=== PATIENT | female | born 1990 | race Caucasian/White ===

== ENCOUNTER → 2024-04-13 16:05 | Outpatient (CLI) | payer OTHER, SELFPAY ==
[2024-04-13 17:22] LABS: Add Manual Diff / Slide Review NO; Basophils Absolute Auto 0 /uL (0-100); Basophils Percent Auto 0.3 % (0-2); Eosinophils Absolute Auto 200 /uL (0-450); Eosinophils Percent Auto 1.6 % (2-4); Hematocrit 37.5 % (36-46); Hemoglobin 12.6 g/dL (12.0-16.0); Lymphocytes Absolute Auto 1500 /uL (1100-4500); Lymphocytes Percent Auto 15.2 % (25-40); Mean Corpuscular HGB Conc 33.6 % (30-36); Mean Corpuscular Hemoglobin 29.3 PG (26-34); Mean Corpuscular Volume 87.1 fL (80-100); Monocytes Absolute Auto 600 /uL (0-900); Monocytes Percent Auto 6.2 % (3-14); Neutrophils Absolute Auto 7400 /uL (1500-7000); Neutrophils Percent Auto 76.7 % (50-75); Platelet Count 238 X10^3/uL (150-400); Red Blood Cell Count 4.31 X10^6/uL (4.0-5.2); Red Cell Distribution Width 15.2 % (11.6-14.8); White Blood Cell Count 9.6 X10^3/uL (4.5-11.0)
[2024-04-13 17:28] LABS: Natera Collection Specimen Collected
[2024-04-13 20:06] LABS: Urine Chlamydia NOT DETECTED; Urine N gonorrhoeae NOT DETECTED
[2024-04-15 09:39] LABS: Varicella IgG Antibody Reactive (Non Reactive)
[2024-04-16 16:10] LABS: Hepatitis B Surface Antigen NEGATIVE s/c (NEGATIVE); Rubella Antibody IgG 54.7 IU/mL (>15)
[2024-04-16 16:27] LABS: Hep C Virus Ab w/Reflex Quant NEGATIVE s/c (NEGATIVE)
[2024-04-16 16:39] LABS: HIV 1 & 2 Ab/Ag 4th Gen Combo NEGATIVE (NEGATIVE)
[2024-04-17 08:08] LABS: RPR Screen Non Reactive (Non Reactive)
== END ==
LOC: LAB 16:07
PROVIDERS: Referring Provider Student in an Organized Health Care Education/Training Program; Visit Provider Student in an Organized Health Care Education/Training Program
DX: O09.521 Supervision of elderly multigravida, first trimester (principal); Z36.0 Encounter for antenatal screening for chromosomal anomalies; Z11.3 Encounter for screening for infections with a predominantly sexual mode of transmission
CPT/HCPCS: 36415; 80055; 86787; 86803; 86850; 86900; 86901; 87086; 87389; 87491; 87591

== ENCOUNTER → 2024-06-29 08:29 | Outpatient (CLI) | payer OTHER, SELFPAY ==
--- NOTE | 2024-06-29 08:33 | DI.US.S_ITS ---
PROCEDURE: US OB >= 14 WEEKS FETUS INDICATIONS: 20 week anatomy scan OUTSIDE/PRIOR DATING DATA: Working SUKHDEEP: 11/02/2024 TECHNIQUE: Real-time scanning was performed of the fetus, with image documentation and biometric measurements. Endovaginal scanning: Not performed COMPARISON: None. FINDINGS: General: A single living intrauterine gestation is present. Presentation: Variable. Placenta: Placental position is posterior , without previa. Amniotic fluid index: 13.6 cm, normal range is 5-24 cm. Single deepest vertical pocket is 4.7 cm. heart rate: 139 beats per minute. Maternal cervical canal: 5.8 cm long. Normal lower limit is 2.5 cm. biometrics: Biparietal diameter: 4.9 cm, 20 weeks 5 days Head circumference: 18.4 cm, 20 weeks 6 days Abdominal circumference: 16.6 cm, 21 weeks 4 days Femur length: 3.6 cm, 21 weeks 4 days Clinically estimated gestational age: 22 weeks 0 days Composite gestational age from present scan: 21 weeks 1 day Estimated weight and percentile: 427 g, 20th percentile Anatomic survey: Neuro: Ventricles are non-dilated at less than 10 mm. Cisterna magna is normal at 3-11 mm. Cerebellum is normal in size and morphology. Nuchal skin fold: Not evaluated due to gestational age. Face: Nose and lips, facial profile are normal. Spine: No evidence for spina bifida. Heart: 4-chambered heart is present, with normal ventricular outflow tracts. Diaphragm: Diaphragm is intact. Stomach: Left-sided stomach is present. Kidneys: No hydronephrosis. Normal is less than 5 mm in 2nd trimester, less than 7 mm in 3rd trimester. Cord: 3-vessel cord has orthotopic insertion. Bladder: Normal in size. Extremities: All 4 extremities identified. IMPRESSION: Single living intrauterine at 22 weeks 0 days, SUKHDEEP of 11/02/2024. Estimated weight of 427 g, 20th percentile. Head circumference is at the 4th percentile and BPD is at the 8th percentile. Normal anatomy survey. We strive to produce accurate, complete, and clear reports of imaging services. To assist us in improving patient care, this report was composed using standard report templates and voice recognition software. Therefore, it may contain abnormal punctuation, insertions and/or omissions. Occasional wrong-word or sound-alike substitutions may occur. Though we review the report and make efforts to correct it, we do recommend that the report be read carefully in proper context to recognize any text inaccuracies. Dictated by: Beau Ford M.D. on 06/29/2024 at 13:23 Approved by: Beau Ford M.D. on 06/29/2024 at 13:25
== END ==
PROVIDERS: Referring Provider Student in an Organized Health Care Education/Training Program; Visit Provider Student in an Organized Health Care Education/Training Program
DX: Z34.82 Encounter for supervision of other normal pregnancy, second trimester (principal); Z3A.22 22 weeks gestation of pregnancy
CPT/HCPCS: 76811

== ENCOUNTER 2024-07-27 10:08 | Outpatient (CLI) | payer OTHER, SELFPAY ==
[2024-07-27] MEDS: LACTATED RINGERS 1,000 ML 1000 ML IV (10:45)
[2024-07-27] MEDS: ONDANSETRON 4 MG/2 ML INJ IV (10:46)
[2024-07-27 11:26] LABS: Hematocrit 35.1 % (36-46); Hemoglobin 12.1 g/dL (12.0-16.0); Mean Corpuscular HGB Conc 34.5 % (30-36); Mean Corpuscular Hemoglobin 31.1 PG (26-34); Mean Corpuscular Volume 90.4 fL (80-100); Platelet Count 227 X10^3/uL (150-400); Red Blood Cell Count 3.88 X10^6/uL (4.0-5.2); Red Cell Distribution Width 12.8 % (11.6-14.8); White Blood Cell Count 10.9 X10^3/uL (4.5-11.0)
[2024-07-27 11:27] LABS: Add Manual Diff / Slide Review YES
[2024-07-27 11:54] LABS: Neutrophils Absolute Manual 10028 /uL (3000-5900); RBC Morphology Normal Morphology; Total Cells Counted 100
--- NOTE | 2024-07-27 11:58 | PM.OBTRLD ---
Visit Information Visit Information Date of evaluation: 07/27/24 Primary OB Provider: Nanette Fitzgerald Comments/Additional reasons for admission: nausea and vomiting x24hrs, unable to keep food/fluids down; denies abdominal pain or obstetrical complaints today [facility] Medical History (Updated 07/27/24 @ 11:58 by Nanette Fitzgerald, DO) Wears glasses Surgical History (Updated 05/04/24 @ 20:35 by America Chance) Anesthesia [place] teeth removed (~2017) H/O gastric sleeve (~2019) Previous section (~05/2012) Family History (Updated 05/04/24 @ 20:38 by America Chance) Brother Family estrangement Mother Hypertension Cervical cancer Father Liver cancer Gastric bypass status for obesity Grandmother Alzheimer's dementia Grandfather Diabetes mellitus Grandmother Colon cancer Hypertension Uncle Bojorquez's disease Family/Other Diabetes mellitus Social History marital status: number of children: 2 household members: spouse, family (MIL and NINA) and children lives independently: Yes caregiver/support person: Yes housing: house pets and animals: Yes (dogs) education level: college (bachelor's degree) 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) current occupational exposures/hazards: Yes special angely needs: No travel history: over 6 months ago seatbelt use: always water heater temp set < 120 deg: Yes working smoke detector in home: Yes fire extinguisher in home: No carbon monox detector in home: Yes firearms in home: Yes firearms unloaded and locked: Yes do you feel safe at home: Yes Smoking Status: Former smoker (smoked since 16, changed to vape since 2019, quits when ) Tobacco: How many years used: 18 second hand exposure: No alcohol intake: former substance use type: does not use during the past year weight has: remained stable well-balanced diet: rarely or never daily servings fruits/ve-1 (1-2) caffeine: Yes (black tea) Type(s) of exercise: none Objective Labs 07/27/24 10:45 Labs: Laboratory Results - last 24 hr 07/27/24 10:45 WBC 10.9 RBC 3.88 L Hgb 12.1 Hct 35.1 L MCV 90.4 MCH 31.1 MCHC 34.5 RDW 12.8 Plt Count 227 Neut % (Auto) Not Reportable Lymph % (Auto) Not Reportable [place] % (Auto) Not Reportable Eos % (Auto) Not Reportable Baso % (Auto) Not Reportable Lymph # (Auto) Not Reportable [place] # (Auto) Not Reportable Baso # (Auto) Not Reportable Total Counted 100 Seg Neutrophils % 92.0 H Lymphocytes % (Manual) 7.0 L Metamyelocytes % 1.0 H Neutrophils # (Manual) 59592 H RBC Morphology Normal morphology Evaluation Evaluation Baseline heart rate: 140 Variability: Moderate (11-25) monitor accelerations: Absent Monitor Decelerations: Absent Category of Tracing: Appropriate for gestational age Diagnosis, Plan/Disposition Final Diagnosis (1) Acute gastroenteritis: Status: Acute Plan/Disposition Plan: 33-year-old female presenting today for intractable nausea and vomiting over the last 24 hours. In triage, she was provided with IV hydration as well as IV antiemetics with improvement in her symptoms. status reassuring with a NST that was appropriate for gestational age. -prescription sent in for oral Zofran to use at home -advised to follow up in clinic as scheduled OB Disposition: home
== END 2024-07-27 12:05 | disposition home or self-care (01) ==
LOC: LABOR 11:56 → OB 15:20
PROVIDERS: Referring Provider Student in an Organized Health Care Education/Training Program; Visit Provider Student in an Organized Health Care Education/Training Program
DX: O26.892 Other specified pregnancy related conditions, second trimester (principal); Z3A.26 26 weeks gestation of pregnancy; K52.9 Noninfective gastroenteritis and colitis, unspecified
CPT/HCPCS: 59025; 59050; 85007; 85025; 96360; G0378; G0379; J2405

== ENCOUNTER → 2024-08-10 07:23 | Outpatient (CLI) | payer OTHER, SELFPAY ==
[2024-08-10 09:18] LABS: GTT (PREG) 1 Hour PP 50gm Dose 135 mg/dL (76-139)
[2024-08-10 09:25] LABS: Hematocrit 32.6 % (36-46); Hemoglobin 11.1 g/dL (12.0-16.0)
== END ==
PROVIDERS: Referring Provider Student in an Organized Health Care Education/Training Program; Visit Provider Student in an Organized Health Care Education/Training Program
DX: Z13.1 Encounter for screening for diabetes mellitus (principal); Z3A.27 27 weeks gestation of pregnancy
CPT/HCPCS: 36415; 82950; 85014; 85018

== ENCOUNTER → 2024-10-09 10:40 | Outpatient (CLI) | payer OTHER, SELFPAY ==
[2024-10-10 14:26] LABS: Strep Grp B PCR NEG for Grp B Strep
== END ==
LOC: LAB 10:41
PROVIDERS: Visit Provider Student in an Organized Health Care Education/Training Program
DX: Z36.85 Encounter for antenatal screening for Streptococcus B (principal)
CPT/HCPCS: 87653

== ENCOUNTER 2024-10-21 19:18 | Outpatient (CLI) | payer OTHER, SELFPAY ==
[2024-10-21 20:52] LABS: Appearance Urine UA CLEAR; Bilirubin Urine UA NEGATIVE (NEGATIVE); Glucose Urine UA NEGATIVE (Negative); Ketones Urine UA NEGATIVE (NEGATIVE); Leukocyte Esterase Urine UA NEGATIVE (NEGATIVE); Nitrite Urine UA NEGATIVE (Negative); Occult Blood Urine UA NEGATIVE (Negative); Protein Urine UA NEGATIVE (Negative); Specific Gravity Urine UA <=1.005 (1.000-1.035); Urobilinogen Urine UA 0.2 E.U./dL (0.2)
[2024-10-21 20:54] LABS: Color Urine UA Yellow
[2024-10-21 20:58] LABS: Bacteria Urine Occasional (0-1); Culture Indicated Urine Cult Not Indicated; RBC Urine 0-1/HPF (0-5/HPF); Squamous Epithelial Cell Urine 0-1 /HPF (0-5/HPF); Urine Volume 10mL (spun); WBC Urine 0-1/HPF (0-5/HPF)
== END 2024-10-21 21:15 | disposition home or self-care (01) ==
LOC: OB 10-23 14:57
PROVIDERS: Referring Provider Student in an Organized Health Care Education/Training Program; Visit Provider Student in an Organized Health Care Education/Training Program
DX: O47.1 False labor at or after 37 completed weeks of gestation (principal); Z3A.38 38 weeks gestation of pregnancy
CPT/HCPCS: 59025; 81001; G0378; G0379

== ENCOUNTER 2024-11-01 05:26 | Inpatient (IN) | payer OTHER, SELFPAY ==
--- NOTE | 2024-11-01 | PATH_ITS ---
[facility] Accession Number: [id number] No. of containers..02 Tissue . 01 Material submitted: . PART A: fallopian tube - BILATERAL FALLOPIAN TUBES PART B: body - RIGHT LATERAL ABDOMINAL WALL . 01 Clinical history: . B: SKIN TAG 7-[address] CHAPA, SITE B IS RIGHT LATERAL ABDOMINAL WALL /RR . 01 Diagnosis: A. BILATERAL FALLOPIAN TUBES, BILATERAL SALPINGECTOMY: Benign fallopian tubes and paratubal cysts, please see microscopic description. . B. RIGHT LATERAL ABDOMINAL WALL, BIOPSY: Benign nevus lipomatosus superficialis. Negative for atypia or malignancy. [facility] 11/07/2024 1113 Local . 01 Electronically signed: . Guilherme Travis MD, Pathologist NPI- [id number] . 01 Gross description: . A. Received in formalin with two identifiers and bilateral fallopian tubes, are two unoriented, fimbriated fallopian tubes, 9.5 x 0.9 cm and 8.9 x 0.6 cm. Both tubes have violaceous, smooth serosa with cystic structures up to 0.4 cm in greatest dimension. The longer fallopian tube has a flores, rubbery serosal nodule near the fimbriated end measuring 0.9 x 0.9 x 0.8 cm, and the nodule is inked blue. Sectioning reveals the nodule to be a cystic structure with slightly thickened zelaya, up to 0.2 cm thick, containing orange-flores, viscous fluid. The lumen are stellate and unremarkable. Angledozer Operator sections are submitted as follows: A1: Longer tube cystic structure. A2: Longer tube one-half of bisected fimbriae and cross-sections. A3: [place] tube one half of bisected fimbriae and cross-sections. B. Received in formalin with two identifiers and skin tag, is a flores nodule of skin, 1.3 x 0.9 x 0.3 cm. The margin is inked blue and sectioning reveals a flores, soft cut surface. Submitted entirely in B1. ([id number]) /MRV 11/02/2024 1333 Local . 01 Microscopic: . A. Microscopic examination reveals a fibrotic nodule with focal dystrophic calcifications and a ruptured appearing wall with histiocytic reaction possibly representing ruptured cyst-with associated acellular material favor possible instrumentation. There is no evidence of malignancy. . As part of ongoing lead quality control technician, slide A1 has also been reviewed by Dr. Merlyn Rojas who agrees with the interpretation. . 01 Pathologist provided ICD-10: O34.211 . 01 CPT . 226987, 359260 Specimen Comment: A courtesy copy of this report has been sent to [facility] Performed at: [address] [address], [place], [place] [id number] MD Yan Wang MD Phone: [phone]
[2024-11-01 06:20] LABS: Add Manual Diff / Slide Review NO; Hematocrit 32.0 % (36-46); Hemoglobin 10.6 g/dL (12.0-16.0); Lymphocytes Absolute Auto 2100 /uL (1100-4500); Mean Corpuscular HGB Conc 33.1 % (30-36); Mean Corpuscular Hemoglobin 28.5 PG (26-34); Mean Corpuscular Volume 85.9 fL (80-100); Platelet Count 211 X10^3/uL (150-400)
--- NOTE | 2024-11-01 07:31 | PM.OBHP.IH.1 ---
OB HPI Date/Time Date of admission: 11/01/24 Date Patient Seen: 11/01/24 Time Patient Seen: 07:32 History of Present Condition Chief complaint: INPT C SECTION SUKHDEEP Calculator Estimated Delivery Date Method Current WG Current Estimate 11/02/24 LMP (Certain) 39w 6d Other Estimates 11/04/24 Ultrasound #1 39w 4d : 3 Para: 2 Narrative: 34yo at 39+6wks presents for repeat with bilateral salpingectomy. No new complaints or concerns today. care: good care Dating criteria OB: LMP confirmed by 1st trimester US Ultrasounds: normal mid trimester US Narrative: Ultrasound Ultrasound Details:: Dating US 04/13/24: [place] IUP with CRL 3.78cm (10+5wks), +FCA 169bpm, normal uterus, cervix, bilateral ovaries Anatomy US 06/29/24: normal anatomy, posterior placenta, EFW 20% however HC/BPD 4%/8% Expected Delivery Route/Plan Repeat C/S w/ tubal Specific Issues/Plans [ x] cfDNA- low risk XY; [x ] CF/SMA- neg x2 Planned repeat C/S (x2, 1st was ), wants tubal at same time (also desires skin tag removal)--> [ x] sterilization consent (signed 09/10); [x ] schedule repeat c/s (11/01) AMA Hx gastric sleeve since last delivery HC 4%/BPD 8% on anatomy US--> [x ] MFM referral (MFM declined to see); [ x] reassess at 36wks in office- normal 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, in lab prerequisites for nursing school; hazards discussed Magdiel (active duty) Assigned to [facility] Indications Operative indications ( section): previous uterine surgery Preadmission Labs Last OB Lab Results: Blood Type O Positive Today, 06:15 Antibody Screen Negative Today, 06:15 Hct, (36-46) 32.0 % L Today, 06:15 Hgb, (12.0-16.0) 10.6 g/dL L Today, 06:15 Hep Bs Antigen, (NEGATIVE) Negative s/c 24, 16:28 Hepatitis C Antibody, (NEGATIVE) Negative s/c 04/13/24, 16:28 Rubella Antibody, (>15) 54.7 IU/mL 04/13/24, 16:28 VZV IgG Antibody, (Non Reactive) Reactive 04/13/24, 16:28 Glucose 1 Hr 50 gm, (76-139) 135 mg/dL 08/10/24, 08:45 Group B Strep (PCR) Neg for grp b strep 10/09/24, 10:40 Glucose Tolerance Testin hr (negative) -: Chlamydia screen: negative, Gonorrhea screen: negative and Urine: negative -: PAP smear: Normal Genetic Screens: Cell-free DNA: Normal External Labs -: Urine: negative Prior (ies) Past Pregnancies Del. Date GA/Weeks Labor Lgth Wt Sex Route Outcome Anesthesia Place Delv Breastfeed Preg Comp Name 09/10/08 41 7 8 lb 9 oz Female vaginal live - full term epidural [place], ID 2-3 months macrosomia post-dates induction Mamie 05/08/12 ~40 9 lb 9 oz Male live - full term spinal [place], ID 2-3 months macrosomia Ritesh Evaluation Evaluation Baseline heart rate: 140 Variability: Moderate (6-25) monitor accelerations: Present Monitor Decelerations: Absent Category of Tracing: Reactive PFSH Medical History (Updated 09/10/24 @ 14:42 by Nanette Fitzgerald DO) Wears glasses Surgical History (Updated 05/04/24 @ 20:35 by America Chance) Anesthesia [place] teeth removed (~2017) H/O gastric sleeve (~2019) Previous section (~05/2012) Family History (Updated 05/04/24 @ 20:38 by America Chance) Brother Family estrangement Mother Hypertension Cervical cancer Father Liver cancer Gastric bypass status for obesity Grandmother Alzheimer's dementia Grandfather Diabetes mellitus Grandmother Colon cancer Hypertension Uncle Bojorquez's disease Family/Other Diabetes mellitus Social History marital status: number of children: 2 household members: spouse, family (MIL and NINA) and children lives independently: Yes caregiver/support person: Yes housing: house pets and animals: Yes (dogs) education level: college (bachelor's degree) 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) current occupational exposures/hazards: Yes special angely needs: No travel history: over 6 months ago seatbelt use: always water heater temp set < 120 deg: Yes working smoke detector in home: Yes fire extinguisher in home: No carbon monox detector in home: Yes firearms in home: Yes firearms unloaded and locked: Yes do you feel safe at home: Yes Smoking Status: Former smoker Tobacco: How many years used: 18 second hand exposure: No alcohol intake: former substance use type: does not use during the past year weight has: remained stable well-balanced diet: rarely or never daily servings fruits/ve-1 (1-2) caffeine: Yes (black tea) Type(s) of exercise: none Meds Home Medications and Allergies Home Medications ?Medication ?Instructions ?Recorded ?Confirmed ?Type biotin 10,000 mcg capsule mcg PO 04/11/24 10/22/24 History [id number]-ygubiyhy-hile 45 mg-folic cap PO 04/11/24 10/22/24 History acid 800 mcg-vit K 120 mcg capsule (Bariatric Multivitamins) ondansetron 4 mg disintegrating 4 mg PO Q6H PRN nausea and 07/27/24 11/01/24 Rx tablet vomiting #10 tabs Held on 11/01/24. Instructions: not taking Allergies Allergy/AdvReac Type Severity Reaction Status Date / Time No Known Drug Allergies Allergy Verified 11/01/24 06:20 Review of Systems Review of Systems ROS: Yes All systems reviewed with the patient and are negative except as otherwise documented OB Exam Vital signs Blood Pressure: 107/69 Pulse Rate: 75 HENMT Head: normal to inspection and normocephalic Eyes General: appearance normal, both eyes and all related structures Resp Effort & Inspection: normal respiratory effort and able to speak in complete sentences Extremities Lower extremity: Yes normal to inspection GI Inspection: normal to inspection Other: gravid, nontender, nondistended Objective Labs 11/01/24 06:15 Labs: Laboratory Results - last 24 hr 11/01/24 06:15 WBC 12.2 H RBC 3.72 L Hgb 10.6 L Hct 32.0 L MCV 85.9 MCH 28.5 MCHC 33.1 RDW 13.9 Plt Count 211 Neut % (Auto) 73.2 Lymph % (Auto) 17.4 L [place] % (Auto) 7.3 Eos % (Auto) 1.6 L Baso % (Auto) 0.5 Neut # (Auto) 8900 H Lymph # (Auto) 2100 [place] # (Auto) 900 Eos # (Auto) 200 Baso # (Auto) 100 Blood Type O Positive Antibody Screen Negative Assessment and Plan Assessment and Plan Assessment and Plan narrative: 34yo at 39+6wks admitted for repeat with bilateral salpingectomy. -CBC, T&S on admission -NST on admission -neuraxial anesthesia -GBS neg; 2g Ancef for surgical prophlyaxis -PPH risk low -VTE risk low, SCDs for ppx -move to OR for delivery once all teams ready counseling: It was explained to the patient that a section is a surgery to deliver the baby through an incision in the abdominal wall and uterus.? All procedures can be associated with risk and unforeseen complications, which can be immediate or delayed.? Risks and complications of section include, but are not limited to:? infection of the uterus, pelvic organs, or skin; inadvertent injury to internal organs such as the bowel, bladder, or possibly even the baby; blood loss, transfusion, and/or life-threatening hemorrhage requiring hysterectomy; blood clots in the legs, pelvic organs, or lungs; adverse reaction to medications or anesthesia during surgery; development of placenta accreta spectrum in a subsequent ; and increased risk of section in a subsequent . Time-Based Coding :: [TOTAL MINUTES] spent with patient and on the chart (including review of chart, obtaining history, exam, reviewing outside data, placing orders, documenting exam and treatment plan, and counseling patient) on [DATE].
[2024-11-01 07:36] VITALS: BP 107/69; PULSE 75
[2024-11-01] MEDS: CEFAZOLIN 2 GM/100 ML PREMIX 100 ML IV (07:53)
[2024-11-01] MEDS: ACETAMINOPHEN IV 1,000 MG/100 ML VIAL 400 MG IV (08:02)
--- NOTE | 2024-11-01 08:14 | SUR.OPER ---
Supine on Padded OR bed, head on pillow, safety belt at thigh, arms secured on padded arm boards at <90 degrees abduction. Bump under right buttock. Legs uncrossed with pillow under knees, gel pad to heels, tape over blanket to lower legs.
[2024-11-01 09:05] VITALS: BP 118/53; PULSE 81; RESP 20; TEMP 35.8; O2SAT 99
--- NOTE | 2024-11-01 09:05 | PM.OBCS.1 ---
Operative Date/Time/Diagnoses Date of procedure: 11/01/24 Time of procedure: 08:00 Pre-op diagnosis: 1. [place] intrauterine gestation at 39+6 weeks 2. History of prior section 3. Undesired future fertility 4. Skin tag Post-op diagnosis: same Procedure & Clinicians Procedure: Repeat low transverse section Bilateral salpingectomy Skin tag excision Same procedure(s) as scheduled: Yes Indications: 34yo at 39+6wks with history of prior , counseled and consented for the above procedures. She was previously counseled regarding sterilization, and desired to proceed with that procedure as well. Surgeon: Nanette Fitzgerald Obstetric Anaesthetist: Ronni Raymundo Reason for Obstetric Anaesthetist: Obstetric Anaesthetist was necessary for timely, efficient, and safe completion of the procedure. Anesthesia Type: Spinal Operative Notes Findings: Normal-appearing uterus and bilateral fallopian tubes and ovaries. Clear fluid noted with AROM. Delivery productive of a viable male infant in cephalic presentation with APGARs 8/9 and weighing 3533g. Specimen(s): tubes/segments of tubes and other (skin tag) Intraoperative meds administered: Duramorph, Ketorolac and Pitocin Applied: Catheter Estimated Blood Loss (mL): 800 Blood products transfused: none Procedure in detail: The risks, benefits, indications and alternatives of the procedure were reviewed with the patient and informed consent was obtained. The patient was taken to the operating room where spinal anesthesia was obtained without difficulty and was found to be adequate. Sequential compression devices were placed bilaterally for VTE prophylaxis. She was then prepped and draped in the normal, sterile fashion in the dorsal supine position with a leftward tilt. She received 2g Ancef for surgical prophylaxis. A Pfannenstiel skin incision was then made with the scalpel and carried through to the underlying layer of fascia. The fascia was incised in the midline and the incision extended laterally with the Baca scissors. The inferior aspect of the fascial incision was grasped with Jared clamps, elevated, and the underlying rectus muscles were dissected off bluntly, aided with Baca scissors. Attention was then turned to the superior aspect of the incision, which, in a similar fashion, was grasped, tented up with Jared clamps and the rectus muscles were dissected off bluntly, aided with Baca scissors. The rectus muscles were then at the midline. The peritoneum was identified, and entered digitally. The peritoneal incision was then extended horizontally, superiorly and inferiorly, with good visualization of the bladder. The Karthik retractor was then inserted. The lower uterine segment was incised in a transverse fashion with the scalpel. The uterine incision was then extended manually in a cephalad/caudad direction. The amniotic sac was artificially ruptured, productive of clear fluid. The infant?s head was unable to be delivered with fundal pressure, thus an Omnicup vacuum was then applied. With traction on the vacuum, the vertex delivered atraumatically through the hysterotomy without difficulty and the vacuum was immediately released. The infant's body then delivered easily.? The cord was doubly clamped and cut after a 60sec delay with the infant handed off to the waiting pediatrics team. The placenta was then removed spontaneously with gentle traction on the umbilical cord. The uterus was exteriorized and cleared of all clots and debris. The uterine incision was repaired with 0-vicryl in a running, locked fashion. A second layer using 0-monocryl was then used to imbricate the center of the hysterotomy with excellent hemostasis achieved. The right fallopian tube was then grasped with a Golden clamp, and ligated from the mesosalpinx with the Ligasure impact, transecting the tube 1cm from the cornua. The same procedure was then repeated on the left side, and both fallopian tubes were sent to pathology for review. The uterus was returned to the abdomen and the hysterotomy was again noted to be hemostatic. The paracolic gutters were cleared of all clot and debris. The Karthik retractor was then removed. The fascia was reapproximated with 0-vicryl in a running fashion. The subcutaneous layer was closed with 3-0 vicryl in a running 2-layer fashion. The skin was closed with 4-0 monocryl in a subcuticular fashion. The incision was then dressed with steri-strips and a pressure dressing was applied. A 2cm skin tag was noted on the right lateral abdominal wall, and per patient's prior request, this was grasped and sharply removed with a knife. The incision was closed with a single 4-0 monocryl interrupted suture, and covered with Dermabond. At the completion of the case, a Crede maneuver was performed with good uterine tone and minimal vaginal bleeding noted.? The patient tolerated the procedure well. Sponge, lap and needle counts were correct x3. The patient was taken to the recovery room in stable condition. Complications: none Post-operative Condition: stable Disposition: PACU Aftercare: routine postop
[2024-11-01 09:10] VITALS: BP 119/65; PULSE 76; RESP 11; O2SAT 99
[2024-11-01 09:15] VITALS: BP 104/64; PULSE 78; RESP 11; O2SAT 100
[2024-11-01] MEDS: OXYCODONE IR 5 MG TABLET PO (10:18)
[2024-11-01] MEDS: NALBUPHINE 20 MG/ML AMPUL 5 MG IV ×2 (11:52→18:12)
[2024-11-01 14:02] VITALS: TEMP 36.4
[2024-11-01] MEDS: ACETAMINOPHEN 325 MG TABLET 650 MG PO ×2 (14:02→20:59)
[2024-11-01] MEDS: LANOLIN OINT 7 GM 1 APPLIC TOP (14:04)
[2024-11-01] MEDS: LACTATED RINGERS 1,000 ML 120 ML IV (14:04)
[2024-11-01] MEDS: KETOROLAC 30 MG/ML VIAL IV ×2 (14:34→20:59)
[2024-11-02] MEDS: OXYCODONE IR 5 MG TABLET PO ×3 (01:28→13:18)
[2024-11-02] MEDS: ACETAMINOPHEN 325 MG TABLET 650 MG PO ×2 (06:07→12:16)
[2024-11-02] MEDS: KETOROLAC 30 MG/ML VIAL IV (06:08)
[2024-11-02 06:45] LABS: Add Manual Diff / Slide Review NO; Hematocrit 26.5 % (36-46); Hemoglobin 8.8 g/dL (12.0-16.0); Lymphocytes Absolute Auto 2700 /uL (1100-4500); Mean Corpuscular HGB Conc 33.2 % (30-36); Mean Corpuscular Hemoglobin 28.5 PG (26-34); Mean Corpuscular Volume 85.6 fL (80-100); Platelet Count 201 X10^3/uL (150-400)
--- NOTE | 2024-11-02 09:13 | P.DS_ITS ---
Discharge Providers Provider Date of admission: 11/01/24 05:26 Discharge Date: 11/02/24 Primary care physician: Aníbal LICEA Provider Consults: 11/01/24 10:04 Consult to Director Of Leadership Development Routine Comment: Discharge provider: Nanette Fitzgerald DO Summary Hospital Course Date Patient Seen: 11/02/24 Time Patient Seen: 09:13 Diagnoses: Term gestation at 39+6wks History of prior section Undesired future fertility Skin tag Hospital Course: 34yo [id number] admitted at 39+6wks for repeat with bilateral salpingectomy for sterilization. Her delivery was uncomplicated, and productive of a viable male infant. Her course was notable for expected postoperative anemia, for which she received IV iron. On post-op day #1, she was ambulating, tolerating regular diet, voiding spontaneously with minimal lochia. Her pain was well controlled with oral medications, thus she was discharged to home on post-op day #1. Peripartum Data Delivery Method: Section Procedures: External monitoring Neuraxial anesthesia delivery Sterilization Skin tag excision IV iron infusion complications: none 1: Gender: Male Disposition of : home Discharge Diagnosis (1) Acute postoperative anemia due to expected blood loss: Status: Acute (2) Delivery by section using transverse incision of lower segment of uterus: Status: Acute (3) Single live : Status: Acute (4) Bariatric surgery status complicating , third trimester: Status: Acute (5) Supervision of elderly multigravida, unspecified trimester: Status: Acute (6) 39 weeks gestation of : Status: Acute Status at Discharge Cognitive/behavioral status at discharge: oriented Functional status at discharge: independent ambulation Overall status at discharge: patient is progressing back to baseline Time Spent with Patient Time attestation: Total time spent providing and/or coordinating discharge services: Time spent: Less than 30 minutes Objective Labs 11/02/24 06:30 Labs: Laboratory Results - last 24 hr 11/02/24 06:30 WBC 15.6 H RBC 3.09 L Hgb 8.8 L Hct 26.5 L MCV 85.6 MCH 28.5 MCHC 33.2 RDW 13.7 Plt Count 201 Neut % (Auto) 74.1 Lymph % (Auto) 17.6 L [place] % (Auto) 6.9 Eos % (Auto) 1.2 L Baso % (Auto) 0.2 Neut # (Auto) 49160 H Lymph # (Auto) 2700 [place] # (Auto) 1100 H Eos # (Auto) 200 Baso # (Auto) 0 Exam Vital Signs (past 8 hours): Oxygen Delivery Method Room Air vitals reviewed in OBIX, within normal parameters Const General: cooperative, healthy appearing, comfortable and No acute distress Resp Effort & Inspection: normal respiratory effort GI Inspection: normal to inspection Other: fundus firm and nontender at U-2 Skin General: no rashes or lesions noted Other: incision clean/dry/intact with steri-strips in place Neuro General: patient alert and patient awake Extrem General: normal to inspection, no pedal edema and no calf tenderness Psych Mood: congruent mood Affect: normal affect Discharge Plan Discharge Plan Patient Disposition: Home Provider Discharge Comment: Take acetaminophen 650mg every 6hrs, then use oxycodone 5-10mg every 4hrs as needed for pain. Take an oral iron supplement every other day to help recover your iron stores and resolve the anemia. Avoid lifting greater than 20lbs for at least 6wks. Avoid placing anything in the vagina for 6wks. Discharge orders & Medications Prescriptions: New oxycodone 5 mg tablet 5 - 10 mg PO Q6H PRN (Reason: pain) Qty: 14 0RF Continued ondansetron 4 mg tablet,disintegrating 4 mg PO Q6H PRN (Reason: nausea and vomiting) Qty: 10 0RF Bariatric Multivitamins 45 mg iron- 800 mcg-120 mcg capsule PO biotin 10,000 mcg capsule PO Follow up/Referrals: Nanette Fitzgerald DO [Physician, PERFORMANCE INSTRUCTOR] Referral Note: Please call Tuesday November 05, 2024 to schedule your 1 week- incision follow-up and your 6-week follow-up appointments. Diet/Activity/Treatments Diet: Diet as Tolerated Activity: As tolerated. Skin/Wound/Dressing Care Skin care: You may shower normally. Report to your healthcare provider any signs of infection, such as:: chills, fever, increased pain, unusual drainage and unusual redness Dressing: The steri-strips will fall off in 1 week. Visit Report/Discharge Packet Instructions: DI for Hemorrhage, DI for , DI for Depression, DI for Prescription Opioid Use Stand Alone Forms: Discharge: Care, Patient Portal/API, Stroke Signs & Symptoms Discharge Data Primary Care Provider: ProviderAníbal
[2024-11-02] MEDS: DOCUSATE 100 MG CAPSULE PO (09:26)
[2024-11-02] MEDS: IRON SUCROSE 300 MG in SODIUM CHLORIDE 0.9% 250 ML 176.667 MG IV (10:03)
[2024-11-02] MEDS: LANOLIN OINT 7 GM 1 APPLIC TOP (12:18)
[2024-11-02 13:34] VITALS: BP 104/64; PULSE 78; RESP 11; TEMP 36.4
== END 2024-11-02 13:34 | disposition home or self-care (01) | DRG 784 ==
PROVIDERS: Admitting Provider Student in an Organized Health Care Education/Training Program; Referring Provider Student in an Organized Health Care Education/Training Program; Visit Provider Student in an Organized Health Care Education/Training Program
PROC: 10D00Z1 Extraction of Products of Conception, Low, Open Approach (ICD-10-PCS; CPT 59514; principal; 2024-11-01 07:45)
DX: O34.211 Maternal care for low transverse scar from previous cesarean delivery (principal); D62 Acute posthemorrhagic anemia; Z3A.39 39 weeks gestation of pregnancy; Z37.0 Single live birth; Z67.40 Type O blood, Rh positive; Z30.2 Encounter for sterilization; L91.8 Other hypertrophic disorders of the skin; O99.72 Diseases of the skin and subcutaneous tissue complicating childbirth; O99.02 Anemia complicating childbirth; O99.844 Bariatric surgery status complicating childbirth
CPT/HCPCS: 36415; 59050; 85025; 86850; 86900; 86901; J0131; J0690; J1100; J1756; J1885; J2274; J2300; J2405